=== PATIENT | female | born 1965 | race Caucasian/White ===

== ENCOUNTER → 2024-04-08 14:38 | Outpatient (REF) | payer BC, SELFPAY | LOC: WDC 14:38 | PROVIDERS: ATTENDING PHYSICIAN Obstetrics & Gynecology; FAMILY PHYSICIAN Family Medicine | DX: Z12.31 Encounter for screening mammogram for malignant neoplasm of breast (principal) | CPT/HCPCS: 77063; 77067 ==

== ENCOUNTER 2025-05-11 12:27 | Emergency (ER) | payer BC, SELFPAY ==
[2025-05-11 12:34] VITALS: BP 130/89
[2025-05-11 12:56] VITALS: BP 106/78
[2025-05-11 13:02] VITALS: BMI 27.5
[2025-05-11 13:03] VITALS: BP 106/78
[2025-05-11 13:16] LABS: Hematocrit 39.6 % (37.0-47.0); Hemoglobin 14.3 g/dL (12.0-16.0); Mean Corp Hgb Conc. 36.1 g/dL (33.0-37.0); Mean Corpuscular Volume 88.2 fL (81.0-99.0); Nucleated Red Blood Cells % 0 %; Platelet Count 204 10^3/uL (130-400); Red Cell Dist. Width 11.9 % (11.5-14.5)
[2025-05-11 13:28] LABS: ALT (SGPT) 13 U/L (0-35); AST (SGOT) 21 U/L (14-36); Albumin 4.4 g/dl (3.5-5.0); Alkaline Phosphatase 48 U/L (38-126); Blood Urea Nitrogen 17 mg/dl (7-17); Calcium 9.2 mg/dl (8.4-10.2); Carbon Dioxide 23 mmol/L (22-30); Chloride 108 mmol/L (98-107); Estimated Creatinine Clearance 64 ml/min; Glucose 97 mg/dl (70-99); Lipase 150 U/L (23-300); Magnesium 2.0 mg/dl (1.6-2.3); Potassium 4.2 mmol/L (3.5-5.1); Sodium 137 mmol/L (135-145); Total Protein 6.8 g/dl (6.3-8.2); eGFR > 60.00
--- NOTE | 2025-05-11 14:37 | ED.GENMED ---
History of Present Illness
General
Chief Complaint: Abdominal Pain
Source: patient
Exam Limitations: none
Time Seen by Provider: 05/11/25 14:09
History of Present Illness
History of Present Illness:
Note:
CHIEF COMPLAINT(S)
Abdominal pain and constipation.
HISTORY OF PRESENT ILLNESS
The patient is a 60-year-old female presenting with abdominal pain and constipation. The abdominal pain began a couple of days ago, described as waxing and waning but never completely resolving. She reports associated nausea but no vomiting,
although she almost felt like vomiting. The last bowel movement occurred nine days ago, approximately Monday before the last, with another potential bowel movement since but none definitely since Monday.
Previously, the patient had been constipated and attributed this to medication changes, namely starting on Wegovy for cardiovascular and weight loss benefits. She experienced significant nausea and vomiting upon initiation of Wegovy, requiring
Zofran for symptom control. Zofran seemed to worsen constipation, so she started taking Colace prophylactically. This is the sixth week of Wegovy, with a recent dose change, leading to controlled vomiting but persistent nausea.
The patient tried multiple remedies to alleviate constipation, including Miralax, Dulcolax, and a mini enema at home, but experienced limited relief. The abdominal pain is described as diffuse, located mostly in the lower abdomen and causing
discomfort when sitting.
On examination and recent labs, there is suspicion of a significant stool burden without signs of bowel obstruction or infection. The plan presented included the option of a milk and molasses enema or a computed tomography (CT) scan for further
evaluation of intra-abdominal pathology.
PAST MEDICAL AND SURGICAL HISTORY
- Wegovy for cardiovascular and weight management.
- Previous section and abdominal surgery for bowel obstruction.
PHYSICAL EXAM
General: Alert, no acute distress.
Skin: Warm, dry.
Head: Normocephalic, atraumatic.
Neck: Supple, trachea midline.
Eye Ears, nose, mouth and throat: Oral mucosa moist.
Cardiovascular: Normal peripheral perfusion, no edema.
Respiratory: Respirations are non-labored.
Gastrointestinal : Mild, diffuse lower abdominal tenderness, no distension, bowel sounds present.
Back: Normal range of motion, normal alignment.
Musculoskeletal: Normal range of motion, normal strength.
Neurological: Alert and oriented to person, place, time, and situation, no focal neurological deficit observed.
Psychiatric: Cooperative, appropriate mood and affect.
PLAN
- Administer a milk and molasses enema to relieve stool burden and assess improvement in symptoms.
- Consideration of a computed tomography (CT) scan if conservative measures do not provide relief or if abdominal pain persists despite treatment.
DIFFERENTIAL DIAGNOSIS
The Differential Diagnosis includes, in no particular order and is not limited to:
- Constipation with fecal impaction
- Medication-induced gastrointestinal side effects
- Bowel obstruction
- Diverticulitis
- Irritable bowel syndrome
- Appendicitis
- Inflammatory bowel disease
- Colorectal carcinoma
- Circulating colitis secondary to fecal impaction
- Gastrointestinal infection or inflammation
Disposition:
SUMMARY OF ENCOUNTER
An 10-year-old female presented with abdominal discomfort and rectal discomfort after not having a bowel movement for nearly two weeks. On examination, the patients condition appeared benign. A CBC was normal, including a normal white count. A
comprehensive metabolic panel (CMP) was also normal. An abdominal x-ray indicated rectal stool and moderate constipation, with no signs of free air or obstruction. The patient was given an enema, resulting in good relief and improvement of symptoms.
PLAN
Recommend taking polyethylene glycol 3350 (Miralax) twice daily for the next four days. Increased fluid intake was also advised. The patient agrees to follow-up. As a precautionary measure, the patient is advised to discontinue her Wegovy due to
side effects.
INDEPENDENT REVIEW OF LABS AND INTERPRETATION OF TESTS
My independent review of CBC shows normal white blood cell count. My independent review of CMP is normal.
MEDICATION RECONCILIATION
An enema was administered in the emergency department. Polyethylene glycol 3350 (Miralax) recommended twice a day for four days. Discontinuation of semaglutide (Ozempic) due to side effects.
MEDICAL DECISION MAKING
-Complexity of Data Reviewed: No chronic conditions were affecting care. Differential diagnosis included constipation with fecal impaction, medication-induced gastrointestinal side effects, bowel obstruction, and other gastrointestinal conditions.
-Data:
Category 1: Reviewed CBC and CMP, both of which were normal. Abdominal x-ray independently interpreted as showing rectal stool and moderate constipation.
-Risk: Consideration of Admission/Observation: Escalation of care including admission/observation was considered given the complexity and risk of the patients presenting complaint and exam findings. However, ultimately, I feel the patient is safe
for outpatient management with close follow-up. Reasoning: Work-up reassuring, does not reveal any acute life/organ-threatening processes, patients symptoms well-controlled upon reevaluation, reexamination is reassuring, vitals are stable, patient
agreeable with discharge, reliable for follow-up.
DIAGNOSIS
Constipation, unspecified (ICD-10: K59.00)
Phy Exam
Physical Exam
Physical Exam:
.
Course
Orders/Labs/Results
Orders:
Orders
05/11/25 13:01
Complete Blood Count/With Diff Urgent
Comprehensive Metabolic Panel Urgent
Lipase Urgent
Magnesium Urgent
05/11/25 13:06
Obstruct Series W/PA Chest [CR Obstruct Series W/pa Chest] Urgent
Comment:
Reason For Exam: pain in abdomen, no bm in 1 week with nausea
05/11/25 14:37
Enema- Treatment ONCE
Type: Milk of Molasses
Abnormal Lab Results
05/11/25
13:01
MCH 31.8 H pg
(27.0-31.0)
Absolute Lymphs (auto) 1.1 L 10^3/uL
(1.2-3.4)
Lymphocytes % 18.1 L %
(20.5-51.1)
Chloride 108 H mmol/L
(98-107)
05/11/25 13:01
05/11/25 13:01
Vital Signs
Initial and Last Documented VS:
Initial Vital Signs
Temp Pulse Resp BP Pulse Ox
98.7 F 92 18 130/89 98
05/11/25 12:34 05/11/25 12:34 05/11/25 12:34 05/11/25 12:34 05/11/25 12:34
Last Documented Vital Signs
Temp Pulse Resp BP Pulse Ox
98.5 F 89 20 106/78 98
05/11/25 13:03 05/11/25 13:03 05/11/25 13:03 05/11/25 13:03 05/11/25 14:37
*Pulse Oximetry
SaO2: 98
Oxygen Mode of Delivery: Room air
Patient hypoxic: no
*Critical Care Note
Total Time (30-74mins, 75-104mins- exclusive of procedures): Not Applicable
ED Attending Note
-
Portions of this chart may have been created with voice recognition software.� Occasional wrong word or��sound alike� substitutions may have occurred due to the inherent limitations of voice recognition software.
Discharge Plan
Departure
Patient Disposition: Home (Routine Discharge)
Date of Disposition: 05/11/25
Time of Disposition: 16:33
Patient with high blood pressure during this ER visit?: No
Discharge Problem:
Constipation, Abdominal pain
Instructions: Constipation, Adult (DC), Abdominal Pain
Prescriptions:
No Action
fexofenadine [Dorene] 180 MG tablet
180 mg PO DAILY
multivitamin with folic acid [Tab-A-Melanie] 1 TABLET tablet
1 tab PO DAILY
Probiotic 1 EACH capsule
1 ea PO DAILY
Iron 27 MG Tab
325 mg PO BID
Vitamin D3 (cholecalciferol): 5,000 UNIT Capsule
5,000 unit PO DAILY
[place] Oil
1 tab PO DAILY
Progesterone
10 mg PO BID
ibuprofen 600 MG tablet
600 mg PO Q6HPRN PRN (Reason: mild pain) Qty: 1 0RF
acetaminophen 650 MG tablet
650 mg PO Q4HPRN PRN (Reason: moderate pain) Qty: 1 0RF
Referrals:
Mariel Fountain PA [Family Provider, Family Practice]
Activity Restrictions/Additional Instructions:
Please use MiraLAX twice a day for the next 4 days. Return immediately for rectal bleeding, worsening pain, fevers, vomiting or any other concerns.
Interventions
Interventions:
*Risk Screen - Suicide Last Done: 05/11/25 12:29
*General Assessment Last Done: 05/11/25 12:34
*Neglect/Abuse Screening Last Done: 05/11/25 12:29
*ED COVID-19 Vaccine History Last Done: 05/11/25 13:03
*ED Influenza Vaccine History Last Done: 05/11/25 13:03
[facility] Fall Risk Assessment Tool Last Done: 05/11/25 13:03
[id number] Assessment Last Done: 05/11/25 13:03
Discharge Date and Time
Print Language: [place]
[2025-05-11 16:41] VITALS: BP 131/85
[2025-05-11 16:59] VITALS: BP 131/85
== END 2025-05-11 16:59 | disposition home or self-care (01) ==
LOC: EMR 12:27
PROVIDERS: Emergency Medicine; EMERGENCY PHYSICIAN Emergency Medicine; FAMILY PHYSICIAN Family Medicine
DX: K59.00 Constipation, unspecified (principal); R10.9 Unspecified abdominal pain
CPT/HCPCS: 99284; 74022; 80053; 83690; 83735; 85025

== ENCOUNTER → 2025-06-04 12:29 | Outpatient (REF) | payer BC, SELFPAY | LOC: RAD 12:29 | PROVIDERS: ATTENDING PHYSICIAN Internal Medicine Rheumatology; FAMILY PHYSICIAN Family Medicine | DX: M25.50 Pain in unspecified joint (principal) | CPT/HCPCS: 73130 ==